=== PATIENT | male | born 1955 | race Caucasian/White ===

== ENCOUNTER → 2016-07-05 | Outpatient (REF) | payer BC ==
[2016-07-05 13:15] LABS: ALBUMIN 3.9 GM/DL (3.2-5.2); ALBUMIN/GLOBULIN RATIO 1.18 (1.00-1.93); ALKALINE PHOSPHATASE 100 U/L (45-117); ALT/SGPT 90 U/L (12-78); ANION GAP 6 MEQ/L (8-16); AST/SGOT 37 U/L (15-37); BILIRUBIN,TOTAL 0.4 MG/DL (0.2-1.0); BLOOD UREA NITROGEN 20 MG/DL (7-18); CALCIUM LEVEL 8.9 MG/DL (8.5-10.1); CARBON DIOXIDE LEVEL 30 MEQ/L (21-32); CHLORIDE LEVEL 102 MEQ/L (98-107); CREATININE FOR GFR 0.97 MG/DL (0.70-1.30); GLOMERULAR FILTRATION RATE > 60.0 (>56); GLUCOSE, FASTING 193 MG/DL (70-105); POTASSIUM SERUM 4.5 MEQ/L (3.5-5.1); SODIUM LEVEL 138 MEQ/L (136-145); TOTAL PROTEIN 7.2 GM/DL (6.4-8.2)
== END ==
LOC: M SFHCPLAZ 08:04
PROVIDERS: ATTEND Nurse Practitioner Family
DX: E11.9 Type 2 diabetes mellitus without complications (principal)

== ENCOUNTER → 2016-10-30 | Outpatient (REF) | payer BC ==
[2016-10-30 11:45] LABS: ALBUMIN 3.7 GM/DL (3.2-5.2); ALBUMIN/GLOBULIN RATIO 1.23 (1.00-1.93); ALKALINE PHOSPHATASE 61 U/L (45-117); ALT/SGPT 48 U/L (12-78); ANION GAP 10 MEQ/L (8-16); AST/SGOT 27 U/L (15-37); BILIRUBIN,TOTAL 0.3 MG/DL (0.2-1.0); BLOOD UREA NITROGEN 17 MG/DL (7-18); CALCIUM LEVEL 8.1 MG/DL (8.8-10.2); CARBON DIOXIDE LEVEL 26 MEQ/L (21-32); CHLORIDE LEVEL 104 MEQ/L (98-107); CHOLESTEROL LEVEL 117 MG/DL (<200); GLOMERULAR FILTRATION RATE > 60.0 (>49); GLUCOSE, FASTING 107 MG/DL (80-110); POTASSIUM SERUM 4.3 MEQ/L (3.5-5.1); SODIUM LEVEL 140 MEQ/L (136-145); TOTAL PROTEIN 6.7 GM/DL (6.4-8.2); TRIGLYCERIDES LEVEL 214 MG/DL (<150)
== END ==
LOC: M SFHCPLAZ 07:55
PROVIDERS: ATTEND Nurse Practitioner Family
DX: E11.9 Type 2 diabetes mellitus without complications (principal); E78.2 Mixed hyperlipidemia; Z12.5 Encounter for screening for malignant neoplasm of prostate
CPT/HCPCS: 36415; 80053; 80061; 83036; G0103

== ENCOUNTER → 2017-02-21 | Outpatient (REF) | payer BC ==
[2017-02-21 13:35] LABS: ALBUMIN 3.8 GM/DL (3.2-5.2); ALBUMIN/GLOBULIN RATIO 1.23 (1.00-1.93); ALKALINE PHOSPHATASE 72 U/L (45-117); ALT/SGPT 48 U/L (12-78); ANION GAP 6 MEQ/L (8-16); AST/SGOT 19 U/L (7-37); BILIRUBIN,TOTAL 0.2 MG/DL (0.2-1.0); BLOOD UREA NITROGEN 23 MG/DL (7-18); CALCIUM LEVEL 9.1 MG/DL (8.8-10.2); CARBON DIOXIDE LEVEL 28 MEQ/L (21-32); CHLORIDE LEVEL 108 MEQ/L (98-107); CREATININE FOR GFR 0.89 MG/DL (0.70-1.30); GLOMERULAR FILTRATION RATE > 60.0 (>49); GLUCOSE, FASTING 95 MG/DL (80-110); POTASSIUM SERUM 4.9 MEQ/L (3.5-5.1); SODIUM LEVEL 142 MEQ/L (136-145); TOTAL PROTEIN 6.9 GM/DL (6.4-8.2)
== END ==
LOC: M SFHCPLAZ 08:23
PROVIDERS: ATTEND Nurse Practitioner Family
DX: E11.9 Type 2 diabetes mellitus without complications (principal)

== ENCOUNTER → 2017-07-26 | Outpatient (REF) | payer BC ==
[2017-07-26 12:22] LABS: ALBUMIN 4.1 GM/DL (3.2-5.2); ALBUMIN/GLOBULIN RATIO 1.24 (1.00-1.93); ALKALINE PHOSPHATASE 75 U/L (45-117); ALT/SGPT 49 U/L (12-78); ANION GAP 7 MEQ/L (8-16); AST/SGOT 22 U/L (7-37); BILIRUBIN,TOTAL 0.4 MG/DL (0.2-1.0); BLOOD UREA NITROGEN 22 MG/DL (7-18); CALCIUM LEVEL 8.8 MG/DL (8.8-10.2); CARBON DIOXIDE LEVEL 27 MEQ/L (21-32); CHLORIDE LEVEL 107 MEQ/L (98-107); CREATININE FOR GFR 0.91 MG/DL (0.70-1.30); GLOMERULAR FILTRATION RATE > 60.0 (>49); GLUCOSE, FASTING 125 MG/DL (70-100); POTASSIUM SERUM 4.4 MEQ/L (3.5-5.1); SODIUM LEVEL 141 MEQ/L (136-145); TOTAL PROTEIN 7.4 GM/DL (6.4-8.2)
[2017-07-26 12:39] LABS: ESTIMATED AVERAGE GLUCOSE 134 MG/DL (60-110); HEMOGLOBIN A1c 6.3 %
[2017-07-26 12:54] LABS: CREATININE, URINE 81.5 MG/DL; MALB URINE SIEMENS 8.4 MG/L; MAU/CREAT RATIO 10.3 MCG/MG (0.0-30.0)
== END ==
LOC: M SFHCPLAZ 07:48
DX: E11.9 Type 2 diabetes mellitus without complications (principal); I10 Essential (primary) hypertension
CPT/HCPCS: 80053

== ENCOUNTER → 2017-11-29 | Outpatient (REF) | payer BC ==
[2017-11-29 11:01] LABS: ALBUMIN 3.8 GM/DL (3.2-5.2); ALBUMIN/GLOBULIN RATIO 1.15 (1.00-1.93); ALKALINE PHOSPHATASE 80 U/L (45-117); ALT/SGPT 79 U/L (12-78); ANION GAP 9 MEQ/L (8-16); AST/SGOT 33 U/L (7-37); BILIRUBIN,TOTAL 0.4 MG/DL (0.2-1.0); BLOOD UREA NITROGEN 19 MG/DL (7-18); CALCIUM LEVEL 8.7 MG/DL (8.8-10.2); CARBON DIOXIDE LEVEL 26 MEQ/L (21-32); CHLORIDE LEVEL 105 MEQ/L (98-107); CHOLESTEROL LEVEL 113 MG/DL (<200); CHOLESTEROL RISK RATIO 3.138 (<5); GLOMERULAR FILTRATION RATE > 60.0 (>49); GLUCOSE, FASTING 179 MG/DL (70-100); HDL CHOLESTEROL 36 MG/DL (>40); LDL CHOLESTEROL 46.2 MG/DL (<100); NON-HDL-C 77 MG/DL; POTASSIUM SERUM 4.5 MEQ/L (3.5-5.1); SODIUM LEVEL 140 MEQ/L (136-145); TOTAL PROTEIN 7.1 GM/DL (6.4-8.2); TRIGLYCERIDES LEVEL 154 MG/DL (<150)
[2017-11-29 11:07] LABS: PSA SCREENING 0.36 NG/ML (< 4.0)
[2017-11-29 11:08] LABS: ESTIMATED AVERAGE GLUCOSE 137 MG/DL (60-110); HEMOGLOBIN A1c 6.4 %
[2017-11-29 11:15] LABS: VITAMIN B12 LEVEL 382 PG/ML (247-911)
== END ==
LOC: M SFHCPLAZ 08:05
DX: I10 Essential (primary) hypertension (principal); E11.9 Type 2 diabetes mellitus without complications; E78.5 Hyperlipidemia, unspecified; Z12.5 Encounter for screening for malignant neoplasm of prostate
CPT/HCPCS: 82607

== ENCOUNTER → 2018-03-03 | Outpatient (REF) | payer BC ==
[2018-03-03 12:08] LABS: ALBUMIN 4.1 GM/DL (3.2-5.2); ALBUMIN/GLOBULIN RATIO 1.46 (1.00-1.93); ALKALINE PHOSPHATASE 74 U/L (45-117); ALT/SGPT 67 U/L (12-78); ANION GAP 7 MEQ/L (8-16); AST/SGOT 29 U/L (7-37); BILIRUBIN,TOTAL 0.4 MG/DL (0.2-1.0); BLOOD UREA NITROGEN 19 MG/DL (7-18); CALCIUM LEVEL 8.8 MG/DL (8.8-10.2); CARBON DIOXIDE LEVEL 27 MEQ/L (21-32); CHLORIDE LEVEL 104 MEQ/L (98-107); CREATININE FOR GFR 1.03 MG/DL (0.70-1.30); ESTIMATED AVERAGE GLUCOSE 146 MG/DL (60-110); GLOMERULAR FILTRATION RATE > 60.0 (>49); GLUCOSE, FASTING 152 MG/DL (70-100); HEMOGLOBIN A1c 6.7 %; POTASSIUM SERUM 4.8 MEQ/L (3.5-5.1); SODIUM LEVEL 138 MEQ/L (136-145); TOTAL PROTEIN 6.9 GM/DL (6.4-8.2)
[2018-03-03 12:10] LABS: TOTAL 25(OH) VITAMIN D 10.1 NG/ML (30.0-100.0)
== END ==
LOC: M SFHCPLAZ 08:11
DX: I10 Essential (primary) hypertension (principal); E78.5 Hyperlipidemia, unspecified; E11.9 Type 2 diabetes mellitus without complications; E55.9 Vitamin D deficiency, unspecified
CPT/HCPCS: 80053

== ENCOUNTER → 2018-06-06 | Outpatient (REF) | payer BC ==
[2018-06-06 11:01] LABS: ALBUMIN 3.9 GM/DL (3.2-5.2); ALT/SGPT 66 U/L (12-78); BILIRUBIN,TOTAL 0.5 MG/DL (0.2-1.0); BLOOD UREA NITROGEN 19 MG/DL (7-18); CALCIUM LEVEL 8.7 MG/DL (8.8-10.2); CARBON DIOXIDE LEVEL 31 MEQ/L (21-32); CHLORIDE LEVEL 105 MEQ/L (98-107); CREATININE FOR GFR 1.03 MG/DL (0.70-1.30); GLOMERULAR FILTRATION RATE > 60.0 (>49); GLUCOSE, FASTING 140 MG/DL (70-100); HEMOGLOBIN A1c 6.9 %; MALB URINE SIEMENS 13.1 MG/L; MAU/CREAT RATIO 12.9 MCG/MG (0.0-30.0); POTASSIUM SERUM 4.7 MEQ/L (3.5-5.1); SODIUM LEVEL 141 MEQ/L (136-145)
== END ==
LOC: M SFHCPLAZ 08:04
PROVIDERS: ATTEND Nurse Practitioner Family
DX: I10 Essential (primary) hypertension (principal); E11.9 Type 2 diabetes mellitus without complications; E55.9 Vitamin D deficiency, unspecified; Z12.5 Encounter for screening for malignant neoplasm of prostate
CPT/HCPCS: 36415; 80053; 82043; 82306; 83036; G0103

== ENCOUNTER 2018-08-18 19:37 | Observation (INO) | payer BC ==
[~2018-08-18] VITALS: Ht 165.1 cm; Wt 103.9 kg
[2018-08-18 20:33] LABS: BASO % 0.4 % (0.0-1.0); EOS # 0.1 10^3/uL (0.0-0.50); EOS % 0.7 % (0.0-3.0); HEMATOCRIT 42.7 % (42.0-52.0); HEMOGLOBIN 14.6 g/dl (13.5-17.5); LYMPH # 1.7 10^3/uL (1.5-4.5); LYMPH % 18.6 % (24.0-44.0); MEAN CORPUSCULAR HEMOGLOBIN 33.5 pg (27.0-33.0); MEAN CORPUSCULAR HGB CONC 34.2 g/dl (32.0-36.5); MEAN CORPUSCULAR VOLUME 97.9 fl (80.0-96.0); MONO # 0.9 10^3/uL (0.0-0.8); NEUTROPHILS # 6.4 10^3/uL (1.8-7.7); PLATELET COUNT, AUTOMATED 175 10^3/uL (150-450); RED BLOOD COUNT 4.36 10^6/uL (4.30-6.10); WHITE BLOOD COUNT 9.1 10^3/uL (4.0-10.0)
[2018-08-18 21:07] LABS: ALBUMIN 3.7 GM/DL (3.2-5.2); ALT/SGPT 60 U/L (12-78); BILIRUBIN,TOTAL 0.4 MG/DL (0.2-1.0); BLOOD UREA NITROGEN 20 MG/DL (7-18); CALCIUM LEVEL 8.5 MG/DL (8.8-10.2); CARBON DIOXIDE LEVEL 20 MEQ/L (21-32); CHLORIDE LEVEL 110 MEQ/L (98-107); CPK CREATINE PHOSPHOKINASE 593 U/L (39-308); CREATININE FOR GFR 1.13 MG/DL (0.70-1.30); FREE T4 0.88 NG/DL (0.76-1.46); GLOMERULAR FILTRATION RATE > 60.0 (>49); GLUCOSE, FASTING 151 MG/DL (70-100); MAGNESIUM LEVEL 1.5 MG/DL (1.8-2.4); MB/CK RELATIVE INDEX 1.06 (< OR =4); POTASSIUM SERUM 4.3 MEQ/L (3.5-5.1); SODIUM LEVEL 140 MEQ/L (136-145); TOTAL PROTEIN 6.5 GM/DL (6.4-8.2); TROPONIN I 0.12 NG/ML (< 0.10)
--- NOTE | 2018-08-18 21:15 | ECGEPIP ---
[facility] - ED Test Date: 2018-08-18 Pat Name: SYLVIA SOMMER Department: Room: - Gender: Male Billposter: ct : [id number] Requested By: COSME Suh Order Number: [id number] Reading MD: Theresa Quinonez Measurements Intervals [place] Rate: 69 P: 35 UT: 162 QRS: QRSD: 97 T: 5 QT: 363 QTc: 391 Interpretive Statements SINUS RHYTHM NO PRIOR FOR COMPARISON Electronically Signed on 08-18-2018 21:15:09 EDT by Theresa Quinonez
[2018-08-18] MEDS ORDERED: MAGNESIUM OXIDE 400 MG TAB (MAG-OX) PO ONE (21:30)
[2018-08-18] MEDS ORDERED: MAG SULF 1GM/100ML (MAG RUN) 1 GM in APPROPRIATE DILUENT 1 EA IV ONE (21:30)
[2018-08-18 22:44] LABS: ETHYL ALCOHOL (ETHANOL) < 0.003 % (0.000-0.010)
[2018-08-18 23:14] LABS: MB/CK RELATIVE INDEX 1.06 (< OR =4); TROPONIN I 0.15 NG/ML (< 0.10)
[2018-08-19] MEDS ORDERED: MOM 30ML SUSPENSION UDC PO PRN (01:00)
[2018-08-19] MEDS ORDERED: BISO5TAB2 PO (01:04)
[2018-08-19] MEDS ORDERED: ROSU20TA4 PO (01:04)
[2018-08-19] MEDS ORDERED: ASPI81TA27 PO (01:04)
[2018-08-19] MEDS ORDERED: LISI-538 PO (01:04)
[2018-08-19] MEDS ORDERED: ESCI20TA PO (01:04)
[2018-08-19] MEDS ORDERED: FISH500C PO (01:04)
[2018-08-19] MEDS ORDERED: METF-877 PO (01:04)
[2018-08-19] MEDS ORDERED: GLIP5TAB8 PO (01:04)
[2018-08-19] MEDS ORDERED: GLUCOSE 4 GM CHEW TABLET PO PRN (01:30)
[2018-08-19] MEDS ORDERED: GLUCAGON FOR INJ 1 MG VIAL (J1610) SC PRN (01:30)
[2018-08-19] MEDS ORDERED: DEXTROSE 50% 50 ML SYRINGE IV PRN (01:30)
--- NOTE | 2018-08-19 01:33 | HPEPDOC ---
General Date of Admission 08/19/18 Date of Service: August 19, 2018 Chief Complaint The patient is a 63-year-old male admitted with a reason for visit of Cardiac Problems. Source: Patient, Family, RN/MD, EMS notes reviewed, Old records Exam Limitations: No limitations Severity: Mild Associated Symptoms: Chest Pain, Syncope History of Present Illness 63 year old Male with PMH of HYPERTENSION , HYPERLIPIDEMIA, DIABETES MELLITUS , OBSTRUCTIVE SLEEP APNEA, FATTY LIVER , ANXIETY , OBESITY, VITAMIN D DEFICI ENCY presented to ED for palpitations, chest pain and syncopal episode at home. 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 The chest heaviness was located retrosternally and slightly to the left. It was heavy pressure like in nature, did not have any radiation. It was associated with palpitations but no nausea or diaphoresis or cough or wheezing or SOB. He went and relaxed in his recliner. THe symptoms went away in about 90 mins. He had a similar episode about 2 weeks ago when he was down in [place] but did not tell any one anything. After initially his symptoms got better he went to take a shower. in shower his symptoms again started and he passed out. Once he regained consciousness he called to his and she then called the EMS. He continued to have palpitations and chest pain. EMS found him to be in SVT. he was given 1 dose of Adenosine and it broke to Sinus rhythm. Patient was brought to the ED. In the ED he was in sinus rhythm. His lab work showed mild elevation of troponin. Repeat one after 2 hour had gone a little bit more. 0.12 to 0.15. Also his magnesium was 1.5. Cardiology was contacted by ED and Dr Hebert recommended admitting for observation of cardiac rhythm and trending of troponins. Home Medications Scheduled Aspirin (Aspirin EC) 81 Mg Tablet., 81 MG PO DAILY, (Reported) Bisoprolol/Hydrochlorothiazide (Bisoprolol-Hctz 5-6.25 mg Tab) 1 Each Tablet, 1 TAB PO DAILY, (Reported) Escitalopram Oxalate (Escitalopram Oxalate) 20 Mg Tablet, 20 MG PO DAILY, (Reported) Glipizide (Glipizide) 5 Mg Tablet, 5 MG PO BID, (Reported) Lisinopril (Lisinopril) 20 Mg Tablet, 20 MG PO DAILY, (Reported) Metformin HCl (Metformin HCl) 1,000 Mg Tablet, 1,000 MG PO BID, (Reported) [place]-3/Dha/Epa/Fish Oil (Fish Oil 500 mg Softgel) 1 Each Capsule, 500 MG PO BID, (Reported) Rosuvastatin Calcium (Rosuvastatin Calcium) 20 Mg Tablet, 20 MG PO 3XW, (Reported) SATURDAY, SATURDAY AND SATURDAY Allergies Coded Allergies: No Known Allergies (Unverified , 08/18/18) Past Medical History Medical History HYPERTENSION , HYPERLIPIDEMIA, DIABETES MELLITUS , OBSTRUCTIVE SLEEP APNEA, FATTY LIVER , ANXIETY , OBESITY, VITAMIN D DEFICIENCY Surgical History Left shoulder cyst removal Family History Significant Family History: Cancer (breat mother, ), Heart disease (father, ), Hypertension Social History * Smoker: Denies Alcohol: occationally (on Weekends about 8 Beers and may be once during the week twice 2 beers.) Drugs: denies A-FIB/CHADSVASC A-FIB History Current/History of A-Fib/PAF?: No Review of Systems Constitutional: Denies: Chills, Fever, Night Sweats Eyes: Denies: Pain, Vision change ENT: Denies: Head Aches, Ear Pain, Dysphagia Skin: Denies: Rash, Lesions, Breakdown Pulmonary: Denies: Dyspnea, Cough Cardiovascular: Reports: Chest Pain, Palpitations, Lt Headedness, Other Symptoms (passed out) Gastrointestinal: Denies: Nausea, Vomiting, Abdominal Pain, Diarrhea Genitourinary: Denies: Dysuria, Frequency, Incontinence, Retention Hematologic: Denies: Bruising, Bleeding Excessively Musculoskeletal: Denies: Neck Pain, Back Pain, Joint Pain, Muscle Pain, Spasms Neurological: Reports: Other Symptoms (syncope); Denies: Weakness, Numbness, Change in speech, Confusion Psych: Reports: Mood Normal, Anxiety; Denies: Depression, Memory Issues Physical Examination General Exam: Positive: Alert, Cooperative, No Acute Distress Eye Exam: Positive: PERRLA, Conjunctiva & lids normal, EOMI; Negative: Sclera icteric ENT Exam: Positive: Atraumatic, Mucous membr. moist/pink, Pharynx Normal Neck Exam: Positive: Supple; Negative: JVD, thyromegaly Chest Exam: Positive: Clear to auscultation, Normal air movement Heart Exam: Positive: Rate Normal, Regular Rhythm, Normal S1, Normal S2; Negative: Murmurs, Rubs Telemetry: Positive: No significant arrhythmia Abdomen Exam: Positive: Normal bowel sounds, Soft; Negative: Tenderness, Hepatospenomegaly Skin Exam: Positive: Nl turgor and temperature; Negative: Breakdown, Lesion Neuro Exam: Positive: Normal Gait, Normal Speech, Cranial Nerves 3-12 NL, R eflexes 2+ Vital Signs Vital Signs Date Time Temp Pulse Resp B/P (MAP) Pulse Ox O2 Delivery O2 Flow Rate FiO2 08/19/18 00:45 54 18 115/62 (79) 94 Room Air 08/18/18 19:50 96.9 Laboratory Data Labs 24H Laboratory Tests 2 08/18/18 20:24: Immature Granulocyte % (Auto) 0.3, White Blood Count 9.1, Red Blood Count 4.36, Hemoglobin 14.6, Hematocrit 42.7, Mean Corpuscular Volume 97.9H, Mean Corpuscular Hemoglobin 33.5H, Mean Corpuscular Hemoglobin Concent 34.2, Red Cell Distribution Width 12.8, Platelet Count 175, Neutrophils (%) (Auto) 70.0H, Lymphocytes (%) (Auto) 18.6L, Monocytes (%) (Auto) 10.0H, Eosinophils (%) (Auto) 0.7, Basophils (%) (Auto) 0.4, Neutrophils # (Auto) 6.4, Lymphocytes # (Auto) 1.7, Monocytes # (Auto) 0.9H, Eosinophils # (Auto) 0.1, Basophils # (Auto) 0.0, Nucleated Red Blood Cells % (auto) 0.0, Anion Gap 10, Glomerular Filtration Rate > 60.0, Blood Urea Nitrogen 20H, Creatinine 1.13, Sodium Level 140, Potassium Level 4.3, Chloride Level 110H, Carbon Dioxide Level 20L, Calcium Level 8.5L, Aspartate Amino Transf (AST/SGOT) 41H, Alanine Aminotransferase (ALT/SGPT) 60, Total Creatine Kinase 593H, Alkaline Phosphatase 64, Total Bilirubin 0.4, Total Protein 6.5, Albumin 3.7, Magnesium Level 1.5L, Creatine Kinase MB 6.0H, Creatine Kinase MB Relative Index 1.06, Troponin I 0.12H, Albumin/Globulin Ratio 1.32, Thyroid Stimulating Hormone (TSH) 1.660, Free Thyroxine 0.88, Ethyl Alcohol Level < 0.003 08/18/18 22:32: Total Creatine Kinase 556H, Creatine Kinase MB 6.0H, Creatine Kinase MB Relative Index 1.06, Troponin I 0.15#H CBC/BMP Laboratory Tests 08/18/18 20:24 Red Blood Count 4.36, Mean Corpuscular Volume 97.9 H, Mean Corpuscular Hemoglobin 33.5 H, Mean Corpuscular Hemoglobin Concent 34.2, Red Cell Distri bution Width 12.8, Neutrophils (%) (Auto) 70.0 H, Lymphocytes (%) (Auto) 18.6 L, Monocytes (%) (Auto) 10.0 H, Eosinophils (%) (Auto) 0.7, Basophils (%) (Auto) 0.4, Neutrophils # (Auto) 6.4, Lymphocytes # (Auto) 1.7, Monocytes # (Auto) 0.9 H, Eosinophils # (Auto) 0.1, Basophils # (Auto) 0.0, Calcium Level 8.5 L, Aspartate Amino Transf (AST/SGOT) 41 H, Alanine Aminotransferase (ALT/SGPT) 60, Total Creatine Kinase 593 H, Alkaline Phosphatase 64, Total Bilirubin 0.4, Total Protein 6.5, Albumin 3.7 Assessment/Plan 63 year old Male with PMH of HYPERTENSION , HYPERLIPIDEMIA, DIABETES MELLITUS , OBSTRUCTIVE SLEEP APNEA, FATTY LIVER , ANXIETY , OBESITY, VITAMIN D DEFICI ENCY presented to ED for palpitations, chest pain and syncopal episode at home. 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 The chest heaviness was located retrosternally and slightly to the left. It was heavy pressure like in nature, did not have any radiation. It was associated with palpitations but no nausea or diaphoresis or cough or wheezing or SOB. He went and relaxed in his recliner. THe symptoms went away in about 90 mins. He had a similar episode about 2 weeks ago when he was down in [place] but did not tell any one anything. After initially his symptoms got better he went to take a shower. in shower his symptoms again started and he passed out. Once he regained consciousness he called to his and she then called the EMS. He continued to have palpitations and chest pain. EMS found him to be in SVT. he was given 1 dose of Adenosine and it broke to Sinus rhythm. Patient was brought to the ED. In the ED he was in sinus rhythm. His lab work showed mild elevation of troponin. Repeat one after 2 hour had gone a little bit more. 0.12 to 0.15. Also his magnesium was 1.5. Cardiology was contacted by ED and Dr Hebert recommended admitting for observation of cardiac rhythm and trending of troponins. SVT now resolved after adenosine by EMS will observe on telemetry Pateint does drink quite significant amount of alcohol over the week ends and he did drink yesterday and today so this may be a precipitating factor I have couselled the pateint regarding cutting down the amount of drinking. Elevated troponin this probably secondary to tachycardia will trend overnight Echo. Hypomagnesemia replaced GALI on CPAP may use own CPAP Morbid Obesity and Fatty liver counselled and diet and trying to loose some weight. Diabetes glipizide continue, hold metformin lispro as per sliding scale Hypertension bisoprolol, lisopril hold HCTZ Hyperlipidemia statin. Plan / VTE VTE Prophylaxis Ordered?: Yes CAROLE WILLIAM MD August 19, 2018 01:31
[2018-08-19 02:45] VITALS: BP 120/62
[2018-08-19 05:22] LABS: BASO # 0.1 10^3/uL (0.0-0.2); BASO % 0.7 % (0.0-1.0); EOS # 0.2 10^3/uL (0.0-0.50); EOS % 2.8 % (0.0-3.0); HEMATOCRIT 41.5 % (42.0-52.0); HEMOGLOBIN 13.9 g/dl (13.5-17.5); LYMPH # 2.3 10^3/uL (1.5-4.5); LYMPH % 33.3 % (24.0-44.0); MEAN CORPUSCULAR HEMOGLOBIN 32.6 pg (27.0-33.0); MEAN CORPUSCULAR HGB CONC 33.5 g/dl (32.0-36.5); MEAN CORPUSCULAR VOLUME 97.2 fl (80.0-96.0); MONO # 0.9 10^3/uL (0.0-0.8); NEUTROPHILS # 3.4 10^3/uL (1.8-7.7); NEUTROPHILS % 49.9 % (36.0-66.0); PLATELET COUNT, AUTOMATED 167 10^3/uL (150-450); RED BLOOD COUNT 4.27 10^6/uL (4.30-6.10); WHITE BLOOD COUNT 6.8 10^3/uL (4.0-10.0)
[2018-08-19 05:40] LABS: BLOOD UREA NITROGEN 18 MG/DL (7-18); CALCIUM LEVEL 8.4 MG/DL (8.8-10.2); CARBON DIOXIDE LEVEL 23 MEQ/L (21-32); CHLORIDE LEVEL 108 MEQ/L (98-107); CREATININE FOR GFR 0.96 MG/DL (0.70-1.30); GLOMERULAR FILTRATION RATE > 60.0 (>49); GLUCOSE, FASTING 118 MG/DL (70-100); MAGNESIUM LEVEL 2.2 MG/DL (1.8-2.4); POTASSIUM SERUM 4.3 MEQ/L (3.5-5.1); SODIUM LEVEL 140 MEQ/L (136-145)
[2018-08-19 05:54] LABS: MB/CK RELATIVE INDEX 1.13 (< OR =4); TROPONIN I 0.21 NG/ML (< 0.10)
[2018-08-19 08:00] VITALS: BP 105/56
--- NOTE | 2018-08-19 08:09 | REP ---
Portable chest x-ray: Single view. History: Chest pain. No comparison study. Findings: Today's views exposed at a somewhat lordotic angle. Lungs are well inflated and clear. Heart size is normal. EKG electrodes are seen. Pulmonary vasculature is not increased. Pleural angles are sharp. Impression: No active disease. Electronically Signed by Maximo Velasquez MD 08/19/2018 08:00 A
[2018-08-19] MEDS: LISINOPRIL 20 MG TAB PO SCH (08:46)
[2018-08-19] MEDS: MAGNESIUM OXIDE 400 MG TAB (MAG-OX) PO SCH (08:46)
[2018-08-19] MEDS: BISOPROLOL FUMARATE 5 MG TAB PO SCH (08:46)
[2018-08-19] MEDS: ASPIRIN 81 MG ENTERIC TAB PO SCH (08:47)
[2018-08-19] MEDS: glipiZIDE (GLUCOTROL) 5 MG TAB PO SCH ×2 (08:47→17:36)
[2018-08-19] MEDS: ENOXAPARIN 40 MG/0.4 ML SYRINGE (J1650) SC SCH (08:47)
[2018-08-19] MEDS: ESCITALOPRAM OXALATE 10 MG TAB (LEXAPRO) PO SCH (08:47)
[2018-08-19] MEDS: HumaLOG INSULIN (NovoLOG) PER UNIT SC SCH ×3 (08:48→17:36)
[2018-08-19] MEDS: DOCUSATE SODIUM 100 MG CAP PO SCH ×2 (09:00→20:33)
--- NOTE | 2018-08-19 09:45 | IPNPDOC ---
Subjective Date Seen The patient was seen on 08/19/18. Subjective Chief Complaint/HPI syncope Events since last encounter Admitted for syncopal episode. Telemetry unremarkable. tropnonin with a slight bump to 0.20. denies further episodes of dizziness, lightheadedness, CP FARIAS, diaphoresis, or fatigue. Echo pending for today. Pulmonary: Denies: Dyspnea, Cough Cardiovascular: Denies: Chest Pain, Palpitations, Orthopnea, Paroxysmal Noc. Dyspnea, Lt Headedness Gastrointestinal: Denies: Nausea, Vomiting, Abdominal Pain, Diarrhea, Constipation Psych: Reports: Mood Normal; Denies: Depression, Memory Issues Objective Physical Examination General Exam: Positive: Alert, Cooperative, No Acute Distress Eye Exam: Positive: PERRLA, Conjunctiva & lids normal, EOMI; Negative: Sclera icteric ENT Exam: Positive: Atraumatic, Mucous membr. moist/pink, Pharynx Normal Neck Exam: Positive: Supple; Negative: JVD, thyromegaly Chest Exam: Positive: Clear to auscultation, Normal air movement Heart Exam: Positive: Rate Normal, Regular Rhythm, Normal S1, Normal S2; Negative: Murmurs, Rubs Telemetry: Positive: No significant arrhythmia Abdomen Exam: Positive: Normal bowel sounds, Soft; Negative: Tenderness, Hepatospenomegaly Skin Exam: Positive: Nl turgor and temperature; Negative: Breakdown, Lesion Neuro Exam: Positive: Normal Gait, Normal Speech, Cranial Nerves 3-12 NL, Ref lexes 2+ Assessment /Plan Problems (1) Elevated troponin Status: Acute Problem Specific Plan: Consult Specialist Problem Text: cardio following. echo pending for today. Most recent level 0.20 (2) SVT (supraventricular tachycardia) Status: Acute Problem Specific Plan: Consult Specialist Problem Text: HR controlled. Cardiology consulted (3) Diabetes Status: Chronic Problem Text: Metformin on HOLD. Continue with RISS (4) HTN (hypertension) Status: Chronic (5) SYD (generalized anxiety disorder) Status: Chronic Problem Text: continue Lexapro Plan/VTE VTE Prophylaxis Ordered?: Yes VS, I&O, 24H, Fishbone Vital Signs/I&O Vital Signs Date Time Temp Pulse Resp B/P (MAP) Pulse Ox O2 Delivery O2 Flow Rate FiO2 08/19/18 08:46 54 105/56 08/19/18 08:00 98.5 18 95 08/19/18 02:15 Room Air I&O- Last 24 Hours up to 6 AM 08/19/18 06:00 Intake Total 100 ml Output Total 600 ml Balance -500 ml Laboratory Data 24H LABS Laboratory Tests 2 08/18/18 20:24: Immature Granulocyte % (Auto) 0.3, White Blood Count 9.1, Red Blood Count 4.36, Hemoglobin 14.6, Hematocrit 42.7, Mean Corpuscular Volume 97.9H, Mean Corpuscular Hemoglobin 33.5H, Mean Corpuscular Hemoglobin Concent 34.2, Red Cell Distribution Width 12.8, Platelet Count 175, Neutrophils (%) (Auto) 70.0H, Lymphocytes (%) (Auto) 18.6L, Monocytes (%) (Auto) 10.0H, Eosinophils (%) (Auto) 0.7, Basophils (%) (Auto) 0.4, Neutrophils # (Auto) 6.4, Lymphocytes # (Auto) 1.7, Monocytes # (Auto) 0.9H, Eosinophils # (Auto) 0.1, Basophils # (Auto) 0.0, Nucleated Red Blood Cells % (auto) 0.0, Anion Gap 10, Glomerular Filtration Rate > 60.0, Blood Urea Nitrogen 20H, Creatinine 1.13, Sodium Level 140, Potassium Level 4.3, Chloride Level 110H, Carbon Dioxide Level 20L, Calcium Level 8.5L, Aspartate Amino Transf (AST/SGOT) 41H, Alanine Aminotransferase (ALT/SGPT) 60, Total Creatine Kinase 593H, Alkaline Phosphatase 64, Total Bilirubin 0.4, Total Protein 6.5, Albumin 3.7, Magnesium Level 1.5L, Creatine Kinase MB 6.0H, Creatine Kinase MB Relative Index 1.06, Troponin I 0.12H, Albumin/Globulin Ratio 1.32, Thyroid Stimulating Hormone (TSH) 1.660, Free Thyroxine 0.88, Ethyl Alcohol Level < 0.003 08/18/18 22:32: Total Creatine Kinase 556H, Creatine Kinase MB 6.0H, Creatine Kinase MB Relative Index 1.06, Troponin I 0.15#H 08/19/18 05:09: Immature Granulocyte % (Auto) 0.3, White Blood Count 6.8, Red Blood Count 4.27L, Hemoglobin 13.9, Hematocrit 41.5L, Mean Corpuscular Volume 97.2H, Mean Corpuscular Hemoglobin 32.6, Mean Corpuscular Hemoglobin Concent 33.5, Red Cell Distribution Width 13.0, Platelet Count 167, Neutrophils (%) (Auto) 49.9, Lymphocytes (%) (Auto) 33.3, Monocytes (%) (Auto) 13.0H, Eosinophils (%) (Auto) 2.8, Basophils (%) (Auto) 0.7, Neutrophils # (Auto) 3.4, Lymphocytes # (Auto) 2.3, Monocytes # (Auto) 0.9H, Eosinophils # (Auto) 0.2, Basophils # (Auto) 0.1, Nucleated Red Blood Cells % (auto) 0.0, Anion Gap 9, Glomerular Filtration Rate > 60.0, Blood Urea Nitrogen 18, Creatinine 0.96, Sodium Level 140, Potassium Level 4.3, Chloride Level 108H, Carbon Dioxide Level 23, Calcium Level 8.4L, Total Creatine Kinase 487H, Magnesium Level 2.2, Creatine Kinase MB 6.0H, Creatine Kinase MB Relative Index 1.13, Troponin I 0.21#H CBC/BMP Laboratory Tests 08/18/18 20:24 Red Blood Count 4.36, Mean Corpuscular Volume 97.9 H, Mean Corpuscular Hemoglobin 33.5 H, Mean Corpuscular Hemoglobin Concent 34.2, Red Cell Distribution Width 12.8, Neutrophils (%) (Auto) 70.0 H, Lymphocytes (%) (Auto) 18.6 L, Monocytes (%) (Auto) 10.0 H, Eosinophils (%) (Auto) 0.7, Basophils (%) (Auto) 0.4, Neutrophils # (Auto) 6.4, Lymphocytes # (Auto) 1.7, Monocytes # (Auto) 0.9 H, Eosinophils # (Auto) 0.1, Basophils # (Auto) 0.0, Calcium Level 8.5 L, Aspartate Amino Transf (AST/SGOT) 41 H, Alanine Aminotransferase (ALT/SGPT) 60, Total Creatine Kinase 593 H, Alkaline Phosphatase 64, Total Bilirubin 0.4, Total Protein 6.5, Albumin 3.7 08/19/18 05:09 Red Blood Count 4.27 L, Mean Corpuscular Volume 97.2 H, Mean Corpuscular Hemoglobin 32.6, Mean Corpuscular Hemoglobin Concent 33.5, Red Cell Distribution Width 13.0, Neutrophils (%) (Auto) 49.9, Lymphocytes (%) (Auto) 33.3, Monocytes (%) (Auto) 13.0 H, Eosinophils (%) (Auto) 2.8, Basophils (%) (Auto) 0.7, Neutrophils # (Auto) 3.4, Lymphocytes # (Auto) 2.3, Monocytes # (Auto) 0.9 H, Eosinophils # (Auto) 0.2, Basophils # (Auto) 0.1, Calcium Level 8.4 L Attending Note Attending Note patient seen and examined. rhythm controlled. no symptoms. likely a candidate for catheter ablation therapy for re-entrant pathway triggering SVT.. Gloria Espinal August 19, 2018 09:45 Joseph Stoddard MD August 19, 2018 16:49
--- NOTE | 2018-08-19 10:01 | CR ---
DATE OF CONSULTATION: 08/19/2018 REFERRING PHYSICIAN: Dr. Pabon INDICATION: Supraventricular tachycardia, elevated troponin. HISTORY OF PRESENT ILLNESS: Mr. Roblero is known to me. I saw him last in 2014 due to multiple risk factors for coronary artery disease, but at that point he did not have any symptoms and we did not pursue any further evaluation. He presented to [facility] ER yesterday after he suffered a syncopal event at home. He told me that he was watering [place] when he suddenly started experiencing palpitations. 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 After he sat down he felt better. He believes that the total duration of palpitations at that point was at least an hour and half if not 2 hours. After he cooled down in the house, he decided to take a shower and as he was showering he got very dizzy and lightheaded and passed out. When he came to, he called his who called the ambulance. He does admit that the shower was very hot. On arrival of the ambulance, he was found to be in narrow complex tachycardia. According to the admission note, he was administered adenosine and the arrhythmia resolved. Unfortunately, I could not find any documentation of this in the chart. There are no telemetry strips but will be looking for them. After evaluation in the ER, a decision was made to continue monitoring the patient in hospital because his troponin was very marginally elevated. The initial reading was 0.12, then 2 hours later it come to 0.15 and then this morning it was 0.21. The patient himself denies any chest discomfort per se. He does admit that during the tachycardia he might have had very minimal discomfort. The patient does report a similar episodes of tachycardia 2 weeks ago. He was then in [place], but after about an hour it spontaneously resolve so he did not seek any immediate medical attention. At bedside the patient feels comfortable. He tells me that he slept well, has not had any problems since. PAST MEDICAL HISTORY: 1. Obesity. 2. Hypertension. 3. Dyslipidemia. 4. Type 2 diabetes. 5. Obstructive sleep apnea (GALI). 6. Fatty liver. OUTPATIENT MEDICATIONS: - aspirin 81 a day - bisoprolol/HCTZ 5/6.25 once a day - citalopram 20 mg a day - glipizide 5 mg twice a day - lisinopril 20 mg a day - metformin 1 gram twice a day - omega 3 fatty acids - rosuvastatin 20 mg three times a week ALLERGIES: No known drug allergies. SURGICAL HISTORY: Positive for removal of a cyst from the left shoulder. FAMILY HISTORY: His father of congestive heart failure and had history of stroke. His mother had breast cancer and in her 70s. 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 He has two children. Does not smoke. He does drink alcohol. He tells me that he had two beers both on Saturday and Saturday, but he denies any excessive alcohol use, especially in binges. REVIEW OF SYSTEMS: On the review of systems he denies any recent illness, fever, chills, nausea, vomiting, diarrhea. No chest pain. No shortness of breath. No abdominal pain. No fluid retention. No bleeding history. PHYSICAL EXAMINATION: Mr. Roblero is a 63-year-old man who appears approximately his age, obese, sitting in PCU bed, alert, oriented and appropriate. No distress. Blood pressure 105/56, heart rate has been mostly in 50s. He is afebrile. Saturation 95% on room air. Weight was documented 103.7 kg. His JVP is not elevated. No carotid bruits. Lungs are clear. Heart exam reveals regular rhythm. I do not appreciate any gallop, rub or murmur. Somewhat muffled heart sounds corresponding to his body habitus. Abdomen is obese but soft and nontender. Extremities are free of edema. Peripheral pulses are palpable. Neurologically, he is intact. I do not appreciate any skin abnormalities. LABORATORIES: His basic metabolic panel is normal but for glucose 118. Cardiac troponins times three as per HPI. CBC is normal. The ethanol level was tested yesterday and was less than 0.003. There are two ECGs in the chart. Both reveal sinus rhythm, poor R-wave progression and no ST-segment abnormalities. Chest x-ray is unremarkable. ASSESSMENT: Mr. Roblero is a 63-year-old man who has multiple risk factors for coronary artery disease (CAD) that include hypertension, dyslipidemia, diabetes, and obesity who presented after a syncopal event at home. It is likely that the SVT that was reportedly discovered by EMT was the trigger, further precipitated by hot water. As far as the management of SVT is concerned, because this was a second episode within 2 weeks and he already has been on beta-rosalia and his heart rate is relatively bradycardic in sinus rhythm, I believe that he would be best served by ablation. This is obviously dependent on ECG strips from ambulance. I asked the PCU mailing clerk to look for the tracings. But the fact that it had responded to adenosine is certainly supportive of this diagnosis. As far as the syncope is concerned, even though the story seems highly suggestive of syncope caused by vasodilation and in setting of SVT, I think it is prudent to obtain an echocardiogram. It was already ordered by the hospitalist service. Provided his left ventricular systolic function is preserved, I do not believe we need to do any further investigations in this setting. As far as the troponin elevation is concerned, I suspect this is caused by underlying tachycardia. Based on the history, he had at least 2 hours of sustained SVT. Because he has multiple risk factors for CAD, I tentatively plan on outpatient evaluation for ischemia with a stress test. Provided he can ambulate on telemetry without difficulty and his cardiac enzymes start trending down, I think he can be discharged home later today or tomorrow. I plan to see him in followup in the office. I also plan on referring him to electrophysiology.
[2018-08-19 12:00] VITALS: BP 115/59
[2018-08-19 14:43] LABS: MB/CK RELATIVE INDEX 1.04 (< OR =4); TROPONIN I 0.2 NG/ML (< 0.10)
[2018-08-19 16:00] VITALS: BP 115/62
[2018-08-19 19:59] VITALS: BP 136/63
--- NOTE | 2018-08-19 20:40 | ECHO ---
DATE OF PROCEDURE: 08/19/2018 REFERRING PHYSICIAN: Marilu Pabon MD INDICATION: SVT, elevated troponin. HEIGHT: 165 cm WEIGHT: 107 kg DIMENSIONS: IVS: 1.1 LV: 5.6 LVPW: 1.0 LA: 4.2 Aorta: 3.1 IVC: 1.7 Mitral E wave velocity: 49, A wave: 41 E prime septal: 8.1, A prime lateral: 14.1 FINDINGS: The study is of fair technical quality corresponding to patient's body habitus. Left ventricle is of normal size and systolic function, I estimate ejection fraction (EF) 60-65%. No segmental wall motion abnormalities are appreciated. Right ventricle also appears normal. Left atrium is moderately enlarged (left atrial volume index 36 mL2). Right atrium appears normal. All four cardiac valves were reasonably well seen and appear normal. No pericardial effusion is noted. Inferior vena cava is normal size. Aortic root appears normal. Aortic arch and abdominal aorta were not well seen. Doppler interrogation reveals no aortic stenosis or insufficiency. There is mild mitral and tricuspid insufficiency. Calculated pulmonary artery pressure is around 30 mmHg corresponding to mild pulmonary hypertension. Trace pulmonic insufficiency is seen. Mitral inflow pattern and tissue Doppler imaging of mitral annulus reveal probably normal diastolic function even though septal tissue Doppler velocity is relatively low. CONCLUSION 1. Study is of fair technical quality. 2. Normal left ventricle (LV) size with normal LV systolic function and probably normal diastolic function. 3. No hemodynamically significant valvular disease. 4. Likely normal central venous pressure and probably mild pulmonary hypertension. 5. Moderate left atrial enlargement (left atrial volume index 36 mL2). COMMENT Subacute bacterial endocarditis (SBE) prophylaxis is not recommended.
[2018-08-19] MEDS ORDERED: HumaLOG INSULIN (NovoLOG) PER UNIT SC SCH (21:00)
[2018-08-19 21:41] LABS: MB/CK RELATIVE INDEX 0.97 (< OR =4); TROPONIN I 0.18 NG/ML (< 0.10)
[2018-08-19 23:59] VITALS: BP 127/64
[2018-08-20 04:00] VITALS: BP 131/62
[2018-08-20 06:09] LABS: BASO % 0.6 % (0.0-1.0); EOS # 0.2 10^3/uL (0.0-0.50); EOS % 2.1 % (0.0-3.0); HEMOGLOBIN 13.6 g/dl (13.5-17.5); LYMPH # 1.5 10^3/uL (1.5-4.5); LYMPH % 20.4 % (24.0-44.0); MEAN CORPUSCULAR HEMOGLOBIN 32.3 pg (27.0-33.0); MEAN CORPUSCULAR HGB CONC 33.2 g/dl (32.0-36.5); MEAN CORPUSCULAR VOLUME 97.4 fl (80.0-96.0); MONO # 0.8 10^3/uL (0.0-0.8); NEUTROPHILS # 4.7 10^3/uL (1.8-7.7); NEUTROPHILS % 65.6 % (36.0-66.0); PLATELET COUNT, AUTOMATED 151 10^3/uL (150-450); RED BLOOD COUNT 4.21 10^6/uL (4.30-6.10); WHITE BLOOD COUNT 7.2 10^3/uL (4.0-10.0)
[2018-08-20 06:42] LABS: BLOOD UREA NITROGEN 17 MG/DL (7-18); CARBON DIOXIDE LEVEL 27 MEQ/L (21-32); CHLORIDE LEVEL 109 MEQ/L (98-107); CPK CREATINE PHOSPHOKINASE 250 U/L (39-308); CREATININE FOR GFR 0.96 MG/DL (0.70-1.30); GLOMERULAR FILTRATION RATE > 60.0 (>49); GLUCOSE, FASTING 151 MG/DL (70-100); MAGNESIUM LEVEL 2.2 MG/DL (1.8-2.4); MB/CK RELATIVE INDEX 1.08 (< OR =4); POTASSIUM SERUM 4.4 MEQ/L (3.5-5.1); SODIUM LEVEL 142 MEQ/L (136-145); TROPONIN I 0.19 NG/ML (< 0.10)
[2018-08-20] MEDS: HumaLOG INSULIN (NovoLOG) PER UNIT SC SCH (07:30)
[2018-08-20 08:00] VITALS: BP 125/65
[2018-08-20] MEDS ORDERED: MAG400TA PO (08:05)
[2018-08-20] MEDS: ENOXAPARIN 40 MG/0.4 ML SYRINGE (J1650) SC SCH (08:49)
[2018-08-20] MEDS: ASPIRIN 81 MG ENTERIC TAB PO SCH (08:50)
[2018-08-20] MEDS: glipiZIDE (GLUCOTROL) 5 MG TAB PO SCH (08:50)
[2018-08-20] MEDS: ESCITALOPRAM OXALATE 10 MG TAB (LEXAPRO) PO SCH (08:50)
[2018-08-20] MEDS: BISOPROLOL FUMARATE 5 MG TAB PO SCH (08:50)
[2018-08-20 08:51] VITALS: BP 125/65
[2018-08-20] MEDS: DOCUSATE SODIUM 100 MG CAP PO SCH (08:51)
[2018-08-20] MEDS: MAGNESIUM OXIDE 400 MG TAB (MAG-OX) PO SCH (08:51)
[2018-08-20] MEDS: LISINOPRIL 20 MG TAB PO SCH (08:51)
--- NOTE | 2018-08-20 08:59 | IPN ---
DATE: 08/20/2018 Mr. Roblero has done well overnight. He has not had any recurrence of supraventricular tachycardia (SVT). He did not do much ambulation yet today, but he ambulated on progressive care unit (PCU) yesterday without difficulty. He has no specific complaints. Blood pressure this morning is 125/65. Heart rate has been in the 50s. He is afebrile. Saturation 99%. Weight is 103.9 kg. He is alert, oriented, appropriate. Lungs are clear. Heart exam regular rhythm. I do not appreciate any gallop, rub or murmur. Abdomen is soft. There is no edema. Laboratory-mclaughlin, normal CBC and essentially normal basic metabolic panel but for a glucose of 151. He had multiple sets of cardiac enzymes. His CK-MB peaked at 6.0, but the relative index has always been negative. His troponin remains mildly elevated. The initial one was 0.12 and he peaked at 0.21 and has been hanging around the same value since. It is 0.19 this morning. ECG reveals no acute ST-segment abnormalities and that was the case yesterday and today. His echocardiogram reveals preserved left ventricular systolic function. ASSESSMENT/PLAN: Mr. Roblero is a 63-year-old man who presented with sustained supraventricular tachycardia that responded to adenosine administered by the EMT. 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 He had a mild troponin elevation which in my opinion is most likely related to his tachycardia that persisted for over 2 hours, but because he has multiple risk factors for CAD, I will bring him for outpatient stress testing probably next week. He is already on beta rosalia and his resting heart rate is in bradycardiac range, so I do not believe we can increase the dose. Because this is not an isolated incident, I believe that his best option would be EP study and ablation and I will set him up with electrophysiology in order to accomplish that. From my perspective, he can be discharged home today and I will arrange for cardiology followup. I spoke with Gloria Espinal NP, about this plan.
[2018-08-20] MEDS ORDERED: ROSUVASTATIN 10 MG TAB (CRESTOR) PO SCH (09:00)
--- NOTE | 2018-08-20 09:33 | ECGEPIP ---
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
--- NOTE | 2018-08-20 09:39 | ECGEPIP ---
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 Electronically Signed on 08-20-2018 9:39:27 EDT by Cedric Shin
--- NOTE | 2018-08-20 09:46 | ECGEPIP ---
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 Electronically Signed on 08-20-2018 9:46:20 EDT by Cedric Shin
--- NOTE | 2018-08-20 10:34 | DSES ---
DATE OF ADMISSION: 08/19/2018 DATE OF DISCHARGE: PRIMARY CARE PROVIDER: Lisa Pulido NP ATTENDING PHYSICIAN: Dr. Joseph Stoddard EMERGENCY VEHICLE OPERATIONS INSTRUCTOR: Dr. Melanie Lr HISTORY OF PRESENT ILLNESS: This is a 63-year-old gentleman with a past medical history of hypertension, hyperlipidemia, diabetes, obstructive sleep apnea, fatty liver, anxiety, and obesity who presented to the emergency department (ED) for complaint of palpitations, chest pain and syncopal episode at home. The patient developed chest heaviness located retrosternally and slightly to the left with a heavy pressure like sensation and associated with palpitations. The patient called EMS after he had a syncopal episode while in the shower. EMS documented supraventricular tachycardia. He was given one dose of Adenosine and the patient responded well returning to sinus rhythm. Initial troponins showed some mild elevation at 0.12 and 0.15 with a low magnesium of 1.5. The patient was subsequently admitted for observation and cardiology was consulted. HOSPITAL COURSE: The patient has remained in sinus rhythm and mildly bradycardic and the heart rate is in the 50s. Oxygen saturations remained stable. The patient's blood pressures have remained stable. The patient is status post echocardiogram with normal left ventricle (LV) size as well as systolic function. Normal CVP. Mild pulmonary hypertension noted and moderate left atrial enlargement. PHYSICAL EXAMINATION: Today, blood pressure is stable at 131/62, oxygen saturation 95% on room air, heart rate 52. Temperature 98. HEENT: Neck supple without lymphadenopathy or jugular venous distention. Cardiovascular: Heart rate and rhythm are regular. Pulmonary: Lungs are clear. Abdomen: Soft. Nontender. Positive bowel sounds throughout. Extremities: No edema. Positive pedal pulses. Neurologic: The patient is alert and oriented times three. Psych: Affect is appropriate, conversations congruent and patient maintains eye contact. ASSESSMENT: 1. Supraventricular tachycardia. The patient will be followed up with cardiology in the short term. Plan is for electrophysiology and probable cardiac ablation. The patient was advised no strenuous activities, limit alcohol intake, remain hydrated, and was given measures to attempt to moderate his SVT while at home. If he is unable to improve his symptoms, he is to come to the emergency department immediately. 2. Diabetes. The patient was encouraged to continue with routine eating, maintain his diabetic diet and limit any risk of hypo or severe hyperglycemia. 3. Hypertension. Continue his at home medications, bisoprolol 5 with hydrochlorothiazide 6.25 mg one by mouth daily. 4. Obstructive sleep apnea. The patient was encouraged to continue with compliance with the CPAP. 5. Hyperlipidemia. The patient has a high ASCVD risk and increased risk. He tolerates his Crestor 20 mg Saturday, Saturday and Fridays and he will continue that. DIET: Carbohydrate consistent, 2 gram sodium. ACTIVITY: As tolerated with no strenuous activity. MEDICATION LIST: - aspirin 81 mg one by mouth daily - bisoprolol/hydrochlorothiazide 5/6.25 mg one by mouth daily - Lexapro 20 mg one daily - glipizide 5 mg by mouth twice a day - lisinopril 20 mg by mouth daily - metformin 1000 mg by mouth twice a day - fish oil one capsule by mouth twice a day - rosuvastatin calcium 20 mg by mouth three times per week - magnesium oxide 400 mg one tablet by mouth daily The patient is discharged in stable and satisfactory condition with no further questions at time of discharge.
== END 2018-08-20 11:08 | disposition home or self-care (01) ==
LOC: M ED 19:37 → M ED INP 08-19 00:58 → M PCU 08-19 02:39
PROVIDERS: ADMIT Internal Medicine Nephrology; ATTEND Family Medicine
DX: I47.1 Supraventricular tachycardia (principal); I10 Essential (primary) hypertension; E78.49 Other hyperlipidemia; E11.9 Type 2 diabetes mellitus without complications; G47.33 Obstructive sleep apnea (adult) (pediatric); K76.0 Fatty (change of) liver, not elsewhere classified; F41.9 Anxiety disorder, unspecified; Z79.82 Long term (current) use of aspirin; Z79.84 Long term (current) use of oral hypoglycemic drugs; Z79.899 Other long term (current) drug therapy
CPT/HCPCS: 36415; 71045; 80048; 80053; 82550; 82553; 83735; 84439; 84443; 84484; 85025; 93005; 93306; 96360; 99285; G0480; J1650; J3475

== ENCOUNTER → 2018-09-05 | Outpatient (REF) | payer BC ==
[~2018-09-05] MED LIST: ASPI81TA27 PO; BISO5TAB2 PO; ESCI20TA PO; FISH500C PO; GLIP5TAB8 PO; LISI-538 PO; MAG400TA PO; METF-877 PO; ROSU20TA4 PO
[2018-09-05 16:27] LABS: ALBUMIN 3.8 GM/DL (3.2-5.2); ALT/SGPT 59 U/L (12-78); BILIRUBIN,TOTAL 0.2 MG/DL (0.2-1.0); BLOOD UREA NITROGEN 20 MG/DL (7-18); CALCIUM LEVEL 8.5 MG/DL (8.8-10.2); CARBON DIOXIDE LEVEL 30 MEQ/L (21-32); CHLORIDE LEVEL 105 MEQ/L (98-107); CREATININE FOR GFR 1.16 MG/DL (0.70-1.30); GLOMERULAR FILTRATION RATE > 60.0 (>49); GLUCOSE, FASTING 168 MG/DL (70-100); MAGNESIUM LEVEL 1.9 MG/DL (1.8-2.4); POTASSIUM SERUM 4.5 MEQ/L (3.5-5.1); SODIUM LEVEL 141 MEQ/L (136-145); TOTAL PROTEIN 6.9 GM/DL (6.4-8.2)
[2018-09-05 16:56] LABS: HEMOGLOBIN A1c 7.1 %
== END ==
LOC: M SFHCPLAZ 12:06
PROVIDERS: ATTEND Nurse Practitioner Family
DX: I10 Essential (primary) hypertension (principal); E83.42 Hypomagnesemia

== ENCOUNTER → 2018-10-04 | Outpatient (REF) | payer BC ==
[~2018-10-04] MED LIST changes: -ROSU20TA4 PO; +ROSU20TA5 PO
== END ==
LOC: M SFHCLERA 10:01
PROVIDERS: ATTEND Nurse Practitioner Family
DX: J02.9 Acute pharyngitis, unspecified (principal)

== ENCOUNTER → 2018-11-14 | Outpatient (REF) | payer BC ==
[2018-11-14 13:07] LABS: HEMOGLOBIN A1c 6.5 %
[2018-11-14 13:13] LABS: ALBUMIN 3.8 GM/DL (3.2-5.2); ALT/SGPT 64 U/L (12-78); BILIRUBIN,TOTAL 0.3 MG/DL (0.2-1.0); BLOOD UREA NITROGEN 16 MG/DL (7-18); CALCIUM LEVEL 9.1 MG/DL (8.8-10.2); CARBON DIOXIDE LEVEL 27 MEQ/L (21-32); CHLORIDE LEVEL 109 MEQ/L (98-107); CHOLESTEROL LEVEL 106 MG/DL (<200); CHOLESTEROL RISK RATIO 2.789 (<5); CREATININE FOR GFR 0.85 MG/DL (0.70-1.30); GLOMERULAR FILTRATION RATE > 60.0 (>49); GLUCOSE, FASTING 77 MG/DL (70-100); HDL CHOLESTEROL 38 MG/DL (>40); LDL CHOLESTEROL 46 MG/DL (<100); NON-HDL-C 68 MG/DL; POTASSIUM SERUM 4.3 MEQ/L (3.5-5.1); SODIUM LEVEL 145 MEQ/L (136-145); TOTAL PROTEIN 6.9 GM/DL (6.4-8.2); TRIGLYCERIDES LEVEL 110 MG/DL (<150)
== END ==
LOC: M SFHCPLAZ 10:51
PROVIDERS: ATTEND Nurse Practitioner Family
DX: E11.9 Type 2 diabetes mellitus without complications (principal); E78.5 Hyperlipidemia, unspecified

== ENCOUNTER → 2018-12-19 | Outpatient (CLI) | payer BC ==
[2018-12-19 11:44] LABS: BASO # 0.1 10^3/uL (0.0-0.2); BASO % 0.9 % (0.0-1.0); EOS # 0.2 10^3/uL (0.0-0.5); EOS % 3.4 % (0.0-3.0); HEMATOCRIT 44.5 % (42.0-52.0); HEMOGLOBIN 14.8 g/dl (13.5-17.5); LYMPH # 1.5 10^3/uL (1.5-5.0); LYMPH % 26.3 % (24.0-44.0); MEAN CORPUSCULAR HEMOGLOBIN 32.7 pg (27.0-33.0); MEAN CORPUSCULAR HGB CONC 33.3 g/dl (32.0-36.5); MEAN CORPUSCULAR VOLUME 98.5 fl (80.0-96.0); MONO # 0.6 10^3/uL (0.0-0.8); MONO % 10.3 % (0.0-5.0); NEUTROPHILS # 3.2 10^3/uL (1.5-8.5); NEUTROPHILS % 58.6 % (36.0-66.0); PLATELET COUNT, AUTOMATED 167 10^3/uL (150-450); RED BLOOD COUNT 4.52 10^6/uL (4.30-6.10); WHITE BLOOD COUNT 5.5 10^3/uL (4.0-10.0)
[2018-12-19 12:12] LABS: BLOOD UREA NITROGEN 14 MG/DL (7-18); CALCIUM LEVEL 8.9 MG/DL (8.8-10.2); CARBON DIOXIDE LEVEL 29 MEQ/L (21-32); CHLORIDE LEVEL 103 MEQ/L (98-107); CREATININE FOR GFR 0.96 MG/DL (0.70-1.30); GLOMERULAR FILTRATION RATE > 60.0 (>49); GLUCOSE, FASTING 109 MG/DL (70-100); POTASSIUM SERUM 4.3 MEQ/L (3.5-5.1); SODIUM LEVEL 139 MEQ/L (136-145)
== END ==
LOC: M LRY 09:25
PROVIDERS: ATTEND Internal Medicine Cardiovascular Disease
DX: I47.2 Ventricular tachycardia (principal)

== ENCOUNTER 2019-06-01 08:49 | Day surgery (SDC) | payer BC ==
[~2019-06-01] VITALS: Ht 165.1 cm; Wt 120.7 kg
[~2019-06-01 08:49] MED LIST changes: +LIDOCAINE 2% INJ 100 MG/5 ML SDV (FOR ANES.) As Ordered ONE; +NS 1,000 ML IV ONE; +TRUL10IN SC
[2019-06-01] MEDS ORDERED: propofoL 200 MG/20 ML VIAL As Ordered ONE ×2 (09:33→10:39)
--- NOTE | 2019-06-01 10:45 | ROOR ---
Patient Name: Jay Roblero Procedure Date: 06/01/2019 10:19 AM Date of : 1955 Age: 63 Room: [facility] Gender: Male Note Status: Finalized Procedure: Colonoscopy Indications: High risk colon cancer surveillance: Personal history of colonic polyps, Last colonoscopy: May 2010 Providers: Cedric MORALES MD Referring MD: RUBEN SOUZA MD Requesting Provider: Medicines: Monitored Anesthesia Care Complications: No immediate complications. Procedure: Pre-Anesthesia Assessment: - The heart rate, respiratory rate, oxygen saturations, blood pressure, adequacy of pulmonary ventilation, and response to care were monitored throughout the procedure. The Colonoscope was introduced through the anus and advanced to the cecum, identified by appendiceal orifice and ileocecal valve. The colonoscopy was performed without difficulty. The patient tolerated the procedure well. The quality of the bowel preparation was good. Findings: The perianal and digital rectal examinations were normal. Three sessile polyps were found in the rectum and sigmoid colon. The polyps were 4 to 5 mm in size. These polyps were removed with a cold snare. Resection and retrieval were complete. Multiple medium-mouthed diverticula were found in the sigmoid colon. Small Internal Hemorrhoids. The exam was otherwise without abnormality on direct and retroflexion views. Impression: - Three 4 to 5 mm polyps in the rectum and in the sigmoid colon, removed with a cold snare. Resected and retrieved. - Diverticulosis in the sigmoid colon. - Small Internal Hemorrhoids. - The examination was otherwise normal on direct and retroflexion views. Recommendation: - Repeat colonoscopy date to be determined after pending pathology results are reviewed for surveillance. - Repeat colonoscopy in 3 - 5 years for surveillance. - Telephone endoscopist for pathology results in 2 weeks. Cedric Morales MD Cedric MORALES MD 06/01/2019 10:44:52 AM Electronically signed by Cedric MORALES MD Number of Addenda: 0 Note Initiated On: 06/01/2019 10:19 AM Estimated Blood Loss: Estimated blood loss: none.
[2019-06-01 11:05] VITALS: BP 101/66
== END 2019-06-01 11:11 | disposition home or self-care (01) ==
LOC: M OPP 08:49
PROVIDERS: ATTEND Internal Medicine Gastroenterology
DX: Z12.11 Encounter for screening for malignant neoplasm of colon (principal); K62.1 Rectal polyp; D12.5 Benign neoplasm of sigmoid colon; K57.30 Diverticulosis of large intestine without perforation or abscess without bleeding; K64.8 Other hemorrhoids; I10 Essential (primary) hypertension; E78.5 Hyperlipidemia, unspecified; G47.8 Other sleep disorders; G47.30 Sleep apnea, unspecified; R06.83 Snoring; E11.9 Type 2 diabetes mellitus without complications; Z79.82 Long term (current) use of aspirin; Z79.899 Other long term (current) drug therapy

== ENCOUNTER → 2019-09-24 | Outpatient (CLI) | payer BC ==
[~2019-09-24] MED LIST changes: -LIDOCAINE 2% INJ 100 MG/5 ML SDV (FOR ANES.) As Ordered ONE; -NS 1,000 ML IV ONE
[2019-09-24 15:43] LABS: ALBUMIN 3.6 GM/DL (3.2-5.2); ALT/SGPT 44 U/L (12-78); BILIRUBIN,TOTAL 0.3 MG/DL (0.2-1.0); BLOOD UREA NITROGEN 18 MG/DL (7-18); CALCIUM LEVEL 8.7 MG/DL (8.8-10.2); CARBON DIOXIDE LEVEL 25 MEQ/L (21-32); CHLORIDE LEVEL 111 MEQ/L (98-107); CHOLESTEROL LEVEL 156 MG/DL (<200); CHOLESTEROL RISK RATIO 4.457 (<5); CREATININE FOR GFR 1.02 MG/DL (0.70-1.30); GLOMERULAR FILTRATION RATE > 60.0 (>49); GLUCOSE, FASTING 181 MG/DL (70-100); HDL CHOLESTEROL 35 MG/DL (>40); LDL CHOLESTEROL 72 MG/DL (<100); MAGNESIUM LEVEL 1.8 MG/DL (1.8-2.4); NON-HDL-C 121 MG/DL; POTASSIUM SERUM 4.3 MEQ/L (3.5-5.1); SODIUM LEVEL 141 MEQ/L (136-145); TOTAL PROTEIN 6.7 GM/DL (6.4-8.2); TRIGLYCERIDES LEVEL 244 MG/DL (<150)
== END ==
LOC: M PLALAB 13:11
PROVIDERS: ATTEND Internal Medicine Cardiovascular Disease
DX: I47.2 Ventricular tachycardia (principal); E78.2 Mixed hyperlipidemia

== ENCOUNTER → 2019-11-19 | Outpatient (CLI) | payer BC ==
[2019-11-19 13:40] LABS: BLOOD UREA NITROGEN 28 MG/DL (7-18); CALCIUM LEVEL 9.2 MG/DL (8.8-10.2); CARBON DIOXIDE LEVEL 28 MEQ/L (21-32); CHLORIDE LEVEL 106 MEQ/L (98-107); CREATININE FOR GFR 1.14 MG/DL (0.70-1.30); GLOMERULAR FILTRATION RATE > 60.0 (>49); GLUCOSE, FASTING 100 MG/DL (70-100); POTASSIUM SERUM 4.4 MEQ/L (3.5-5.1); SODIUM LEVEL 139 MEQ/L (136-145)
[2019-11-19 13:49] LABS: ALT/SGPT 57 U/L (12-78); BILIRUBIN,TOTAL 0.4 MG/DL (0.2-1.0); BLOOD UREA NITROGEN 28 MG/DL (7-18); CARBON DIOXIDE LEVEL 27 MEQ/L (21-32); CHLORIDE LEVEL 106 MEQ/L (98-107); CHOLESTEROL LEVEL 104 MG/DL (<200); CHOLESTEROL RISK RATIO 2.971 (<5); CREATININE FOR GFR 1.15 MG/DL (0.70-1.30); GLOMERULAR FILTRATION RATE > 60.0 (>49); GLUCOSE, FASTING 99 MG/DL (70-100); HDL CHOLESTEROL 35 MG/DL (>40); LDL CHOLESTEROL 40 MG/DL (<100); NON-HDL-C 69 MG/DL; POTASSIUM SERUM 4.4 MEQ/L (3.5-5.1); SODIUM LEVEL 140 MEQ/L (136-145); TOTAL 25(OH) VITAMIN D 49.8 NG/ML (30.0-100.0); TOTAL PROTEIN 7.1 GM/DL (6.4-8.2); TRIGLYCERIDES LEVEL 145 MG/DL (<150)
[2019-11-19 14:01] LABS: HEMOGLOBIN A1c 6.1 %
== END ==
LOC: M PLALAB 09:01
PROVIDERS: ATTEND Family Medicine
DX: E11.9 Type 2 diabetes mellitus without complications (principal); E78.5 Hyperlipidemia, unspecified; F41.9 Anxiety disorder, unspecified; E78.2 Mixed hyperlipidemia; E55.9 Vitamin D deficiency, unspecified; I50.9 Heart failure, unspecified; I48.91 Unspecified atrial fibrillation

== ENCOUNTER → 2020-02-22 | Outpatient (CLI) | payer BC ==
[2020-02-22 16:21] LABS: ALBUMIN 3.6 GM/DL (3.2-5.2); ALT/SGPT 49 U/L (12-78); BILIRUBIN,TOTAL 0.3 MG/DL (0.2-1.0); BLOOD UREA NITROGEN 38 MG/DL (7-18); CALCIUM LEVEL 8.8 MG/DL (8.8-10.2); CARBON DIOXIDE LEVEL 28 MEQ/L (21-32); CHLORIDE LEVEL 105 MEQ/L (98-107); CHOLESTEROL LEVEL 141 MG/DL (<200); CHOLESTEROL RISK RATIO 3.916 (<5); CREATININE FOR GFR 1.42 MG/DL (0.70-1.30); GLOMERULAR FILTRATION RATE 53.6 (>49); GLUCOSE, FASTING 122 MG/DL (70-100); HDL CHOLESTEROL 36 MG/DL (>40); MAGNESIUM LEVEL 1.8 MG/DL (1.8-2.4); NON-HDL-C 105 MG/DL; NT-PRO BNP 34 PG/ML (<125); POTASSIUM SERUM 4.4 MEQ/L (3.5-5.1); SODIUM LEVEL 141 MEQ/L (136-145); TOTAL PROTEIN 6.8 GM/DL (6.4-8.2); TRIGLYCERIDES LEVEL 485 MG/DL (<150)
== END ==
LOC: M PLALAB 13:48
PROVIDERS: ATTEND Internal Medicine Cardiovascular Disease
DX: I47.2 Ventricular tachycardia (principal); E78.2 Mixed hyperlipidemia

== ENCOUNTER → 2020-05-20 | Outpatient (CLI) | payer BC ==
[~2020-05-20] MED LIST changes: -ESCI20TA PO; +ESCI20TA16 PO; -LISI-538 PO; +LISI20TA33 PO; -MAG400TA PO; +MAGN400T35 PO
[2020-05-20 14:47] LABS: HEMATOCRIT 39.1 % (42.0-52.0); HEMOGLOBIN 12.4 g/dl (13.5-17.5); MEAN CORPUSCULAR HEMOGLOBIN 31.2 pg (27.0-33.0); MEAN CORPUSCULAR HGB CONC 31.7 g/dl (32.0-36.5); MEAN CORPUSCULAR VOLUME 98.2 fl (80.0-96.0); PLATELET COUNT, AUTOMATED 171 10^3/uL (150-450); RED BLOOD COUNT 3.98 10^6/uL (4.30-6.10); WHITE BLOOD COUNT 5.9 10^3/uL (4.0-10.0)
[2020-05-20 15:19] LABS: ALBUMIN 3.6 GM/DL (3.2-5.2); ALT/SGPT 42 U/L (12-78); BILIRUBIN,TOTAL 0.4 MG/DL (0.2-1.0); BLOOD UREA NITROGEN 33 MG/DL (7-18); CALCIUM LEVEL 9.3 MG/DL (8.8-10.2); CARBON DIOXIDE LEVEL 29 MEQ/L (21-32); CHLORIDE LEVEL 109 MEQ/L (98-107); CHOLESTEROL LEVEL 82 MG/DL (<200); CHOLESTEROL RISK RATIO 2.411 (<5); CREATININE FOR GFR 1.21 MG/DL (0.70-1.30); GLOMERULAR FILTRATION RATE > 60.0 (>49); GLUCOSE, FASTING 134 MG/DL (70-100); HDL CHOLESTEROL 34 MG/DL (>40); LDL CHOLESTEROL 22 MG/DL (<100); MAGNESIUM LEVEL 1.7 MG/DL (1.8-2.4); NON-HDL-C 48 MG/DL; POTASSIUM SERUM 4.7 MEQ/L (3.5-5.1); SODIUM LEVEL 141 MEQ/L (136-145); TOTAL PROTEIN 6.7 GM/DL (6.4-8.2); TRIGLYCERIDES LEVEL 129 MG/DL (<150)
== END ==
LOC: M PLALAB 11:16
PROVIDERS: ATTEND Internal Medicine Cardiovascular Disease
DX: I47.2 Ventricular tachycardia (principal); E78.2 Mixed hyperlipidemia

== ENCOUNTER → 2020-06-01 | Outpatient (CLI) | payer BC ==
[2020-06-01 14:37] LABS: BLOOD UREA NITROGEN 21 MG/DL (7-18); CALCIUM LEVEL 9.2 MG/DL (8.8-10.2); CARBON DIOXIDE LEVEL 28 MEQ/L (21-32); CHLORIDE LEVEL 104 MEQ/L (98-107); CREATININE FOR GFR 1.23 MG/DL (0.70-1.30); GLOMERULAR FILTRATION RATE > 60.0 (>49); GLUCOSE, FASTING 112 MG/DL (70-100); POTASSIUM SERUM 4.6 MEQ/L (3.5-5.1); SODIUM LEVEL 138 MEQ/L (136-145)
[2020-06-02 17:07] LABS: Lyme Disease IgG/IgM Antibodie <0.91 ISR (0.00-0.90); Lyme Disease IgM Ab Quantitati <0.80 index (0.00-0.79)
== END ==
LOC: M PLALAB 11:47
PROVIDERS: ATTEND Internal Medicine Cardiovascular Disease
DX: E78.6 Lipoprotein deficiency (principal); A69.20 Lyme disease, unspecified

== ENCOUNTER → 2020-07-18 | Outpatient (REF) | payer BC ==
[2020-07-18 12:20] LABS: ALBUMIN 3.9 GM/DL (3.2-5.2); ALT/SGPT 50 U/L (12-78); BILIRUBIN,TOTAL 0.4 MG/DL (0.2-1.0); BLOOD UREA NITROGEN 19 MG/DL (7-18); CARBON DIOXIDE LEVEL 29 MEQ/L (21-32); CHLORIDE LEVEL 107 MEQ/L (98-107); CREATININE FOR GFR 1.04 MG/DL (0.70-1.30); GLOMERULAR FILTRATION RATE > 60.0 (>49); GLUCOSE, FASTING 125 MG/DL (70-100); MAGNESIUM LEVEL 2.1 MG/DL (1.8-2.4); POTASSIUM SERUM 5.4 MEQ/L (3.5-5.1); SODIUM LEVEL 141 MEQ/L (136-145); TOTAL PROTEIN 7.1 GM/DL (6.4-8.2)
== END ==
LOC: M PLALAB 09:51
PROVIDERS: ATTEND Internal Medicine Cardiovascular Disease
DX: E78.2 Mixed hyperlipidemia (principal); I50.9 Heart failure, unspecified; I47.2 Ventricular tachycardia

== ENCOUNTER → 2020-07-22 | Outpatient (CLI) | payer BC ==
--- NOTE | 2020-07-22 12:34 | ECGEPIP ---
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
[2020-07-25 23:07] LABS: FLECAINIDE LEVEL 0.39 ug/mL (0.20-1.00)
== END ==
LOC: M LAB 09:28
PROVIDERS: ATTEND Internal Medicine Cardiovascular Disease
DX: I47.1 Supraventricular tachycardia (principal)

== ENCOUNTER → 2020-12-09 | Outpatient (CLI) | payer BC ==
[~2020-12-09] MED LIST changes: +BISO1TAB18 PO; -BISO5TAB2 PO
[2020-12-09 13:22] LABS: HEMATOCRIT 47.4 % (42.0-52.0); HEMOGLOBIN 15.5 g/dl (13.5-17.5); MEAN CORPUSCULAR HEMOGLOBIN 31.9 pg (27.0-33.0); MEAN CORPUSCULAR HGB CONC 32.7 g/dl (32.0-36.5); MEAN CORPUSCULAR VOLUME 97.5 fl (80.0-96.0); PLATELET COUNT, AUTOMATED 195 10^3/uL (150-450); RED BLOOD COUNT 4.86 10^6/uL (4.30-6.10); WHITE BLOOD COUNT 7.4 10^3/uL (4.0-10.0)
[2020-12-09 13:49] LABS: ALBUMIN 3.8 GM/DL (3.2-5.2); ALT/SGPT 71 U/L (12-78); BILIRUBIN,TOTAL 0.4 MG/DL (0.2-1.0); BLOOD UREA NITROGEN 15 MG/DL (7-18); CALCIUM LEVEL 9.1 MG/DL (8.8-10.2); CARBON DIOXIDE LEVEL 29 MEQ/L (21-32); CHLORIDE LEVEL 105 MEQ/L (98-107); CREATININE FOR GFR 1.07 MG/DL (0.70-1.30); GLOMERULAR FILTRATION RATE > 60.0 (>49); GLUCOSE, FASTING 151 MG/DL (70-100); POTASSIUM SERUM 5.2 MEQ/L (3.5-5.1); SODIUM LEVEL 139 MEQ/L (136-145); TOTAL PROTEIN 6.9 GM/DL (6.4-8.2)
[2020-12-09 13:57] LABS: MALB URINE SIEMENS 32.2 MG/L; MAU/CREAT RATIO 22.6 MCG/MG (0.0-30.0)
[2020-12-09 14:42] LABS: HEMOGLOBIN A1c 6.6 %
== END ==
LOC: M PLALAB 09:16
PROVIDERS: ATTEND Family Medicine
DX: E11.9 Type 2 diabetes mellitus without complications (principal)

== ENCOUNTER → 2021-05-29 | Outpatient (CLI) | payer BC ==
[2021-05-29 13:49] LABS: HEMOGLOBIN A1c 6.9 %
[2021-05-29 13:59] LABS: CHOLESTEROL RISK RATIO 2.138 (<5)
== END ==
LOC: M PLALAB 11:17
PROVIDERS: ATTEND Family Medicine
DX: E11.9 Type 2 diabetes mellitus without complications (principal)

== ENCOUNTER → 2021-08-08 | Outpatient (CLI) | payer BC ==
[2021-08-08 14:33] LABS: BLOOD UREA NITROGEN 24 MG/DL (7-18); CALCIUM LEVEL 8.6 MG/DL (8.8-10.2); CARBON DIOXIDE LEVEL 28 MEQ/L (21-32); CHLORIDE LEVEL 109 MEQ/L (98-107); CREATININE FOR GFR 1.11 MG/DL (0.70-1.30); GLOMERULAR FILTRATION RATE > 60.0 (>49); GLUCOSE, FASTING 146 MG/DL (70-100); POTASSIUM SERUM 4.9 MEQ/L (3.5-5.1); SODIUM LEVEL 141 MEQ/L (136-145)
[2021-08-08 14:43] LABS: MALB URINE SIEMENS 44.9 MG/L; MAU/CREAT RATIO 25.8 MCG/MG (0.0-30.0)
[2021-08-09 20:08] LABS: TESTOSTERONE FREE (DIRECT) 3.2 pg/mL (6.6-18.1)
== END ==
LOC: M PLALAB 09:54
PROVIDERS: ATTEND Family Medicine
DX: N52.9 Male erectile dysfunction, unspecified (principal)

== ENCOUNTER → 2021-12-27 | Outpatient (CLI) | payer BC, MEDICARE ==
[2021-12-27 16:14] LABS: ALBUMIN 3.7 GM/DL (3.2-5.2); BILIRUBIN,DIRECT 0.1 MG/DL (0.0-0.2); BILIRUBIN,TOTAL 0.3 MG/DL (0.2-1.0); TOTAL PROTEIN 6.9 GM/DL (6.4-8.2)
[2021-12-27 16:29] LABS: HEMOGLOBIN A1c 6.4 %
[2021-12-27 16:51] LABS: CREATININE, URINE 76.2 MG/DL; MALB URINE SIEMENS 19.6 MG/L; MAU/CREAT RATIO 25.7 MCG/MG (0.0-30.0)
== END ==
LOC: M PLALAB 13:33
PROVIDERS: ATTEND Family Medicine
DX: N40.0 Benign prostatic hyperplasia without lower urinary tract symptoms (principal); Z12.5 Encounter for screening for malignant neoplasm of prostate
CPT/HCPCS: 36415; 80076; 82043; 83036; G0103

== ENCOUNTER → 2022-04-23 | Outpatient (CLI) | payer MEDICARE ==
[2022-04-23 14:44] LABS: HEMATOCRIT 48.8 % (42.0-52.0); HEMOGLOBIN 15.5 g/dl (13.5-17.5); MEAN CORPUSCULAR HEMOGLOBIN 30.8 pg (27.0-33.0); MEAN CORPUSCULAR HGB CONC 31.8 g/dl (32.0-36.5); PLATELET COUNT, AUTOMATED 196 10^3/uL (150-450); RED BLOOD COUNT 5.03 10^6/uL (4.30-6.10); WHITE BLOOD COUNT 6.4 10^3/uL (4.0-10.0)
[2022-04-23 15:07] LABS: BLOOD UREA NITROGEN 25 MG/DL (9-23); CALCIUM LEVEL 9.2 MG/DL (8.3-10.6); CARBON DIOXIDE LEVEL 28 MMOL/L (20-31); CHLORIDE LEVEL 104 MMOL/L (98-107); CHOLESTEROL LEVEL 133 MG/DL (<200); CHOLESTEROL RISK RATIO 3.46 (<5); CREATININE FOR GFR 1.03 MG/DL (0.70-1.30); GLOMERULAR FILTRATION RATE > 60.0 (>49); GLUCOSE, FASTING 136 MG/DL (74-106); HDL CHOLESTEROL 38.4 MG/DL (>40); LDL CHOLESTEROL 61.4 MG/DL (<100); NON-HDL-C 95 MG/DL; POTASSIUM SERUM 4.9 MMOL/L (3.5-5.1); SODIUM LEVEL 139 MMOL/L (136-145); TRIGLYCERIDES LEVEL 166 MG/DL (<150)
== END ==
LOC: M PLALAB 10:52
PROVIDERS: ATTEND Physician Assistant
DX: E78.2 Mixed hyperlipidemia (principal)

== ENCOUNTER 2022-08-23 06:32 | Day surgery (SDC) | payer MEDICARE ==
[~2022-08-23] VITALS: Ht 165.1 cm; Wt 99.8 kg
[~2022-08-23 06:32] MED LIST changes: +BISO5TAB14 PO; +CHLO125TA PO; +FLEC1TAB PO; +LEXA1TAB2 PO; +LISI40TA4 PO; +METF10004 PO; +NS 1,000 ML IV ONE; +ROSU40TA4 PO; +TADA5TAB PO
[2022-08-23] MEDS ORDERED: LIDOCAINE 2% 100MG/5ML SDV (FOR ANES.) As Ordered ONE (07:39)
[2022-08-23] MEDS ORDERED: GLYCOPYRROLATE INJ 0.2 MG/ML 2 ML VIAL As Ordered ONE (07:39)
[2022-08-23] MEDS ORDERED: propofoL 200 MG/20 ML VIAL As Ordered ONE (07:39)
[2022-08-23 08:08] VITALS: BP 114/55
== END 2022-08-23 08:17 | disposition home or self-care (01) ==
LOC: M OPP 06:32
PROVIDERS: ATTEND Internal Medicine Gastroenterology
DX: Z86.010 Personal history of colon polyps (principal); D12.3 Benign neoplasm of transverse colon; K57.30 Diverticulosis of large intestine without perforation or abscess without bleeding; K64.8 Other hemorrhoids; I10 Essential (primary) hypertension; E78.5 Hyperlipidemia, unspecified; E11.9 Type 2 diabetes mellitus without complications; G47.30 Sleep apnea, unspecified; E66.9 Obesity, unspecified; F41.9 Anxiety disorder, unspecified; Z79.82 Long term (current) use of aspirin; Z79.84 Long term (current) use of oral hypoglycemic drugs; Z79.85 Long-term (current) use of injectable non-insulin antidiabetic drugs; Z79.899 Other long term (current) drug therapy; Z80.3 Family history of malignant neoplasm of breast; Z82.49 Family history of ischemic heart disease and other diseases of the circulatory system; Z83.3 Family history of diabetes mellitus; Z83.79 Family history of other diseases of the digestive system

== ENCOUNTER → 2022-08-28 | Outpatient (CLI) | payer MEDICARE ==
[~2022-08-28] MED LIST changes: -NS 1,000 ML IV ONE
[2022-08-28 15:20] LABS: HEMATOCRIT 40.7 % (42.0-52.0); HEMOGLOBIN 13.1 g/dl (13.5-17.5); MEAN CORPUSCULAR HEMOGLOBIN 31.9 pg (27.0-33.0); MEAN CORPUSCULAR HGB CONC 32.2 g/dl (32.0-36.5); PLATELET COUNT, AUTOMATED 170 10^3/uL (150-450); RED BLOOD COUNT 4.11 10^6/uL (4.30-6.10); WHITE BLOOD COUNT 6.1 10^3/uL (4.0-10.0)
[2022-08-28 15:44] LABS: MAU/CREAT RATIO 5.7 MCG/MG (0.0-30.0)
[2022-08-28 15:46] LABS: ALBUMIN 3.8 G/DL (3.2-5.2); ALKALINE PHOSPHATASE 74 U/L (46-116); ALT/SGPT 42 U/L (7.0-40); AST/SGOT 23 U/L (<34); BILIRUBIN,TOTAL 0.4 MG/DL (0.3-1.2); BLOOD UREA NITROGEN 17 MG/DL (9-23); CALCIUM LEVEL 8.4 MG/DL (8.3-10.6); CARBON DIOXIDE LEVEL 28 MMOL/L (20-31); CHLORIDE LEVEL 106 MMOL/L (98-107); CHOLESTEROL LEVEL 82 MG/DL (<200); CHOLESTEROL RISK RATIO 2.18 (<5); CREATININE FOR GFR 1.03 MG/DL (0.70-1.30); GLOMERULAR FILTRATION RATE > 60.0 (>49); GLUCOSE, FASTING 142 MG/DL (74-106); HDL CHOLESTEROL 37.6 MG/DL (>40); LDL CHOLESTEROL 19.2 MG/DL (<100); NON-HDL-C 44.4 MG/DL; SODIUM LEVEL 140 MMOL/L (136-145); TOTAL PROTEIN 6.3 G/DL (5.7-8.2); TRIGLYCERIDES LEVEL 126 MG/DL (<150)
[2022-08-28 15:48] LABS: TOTAL 25(OH) VITAMIN D 22.2 NG/ML (20.0-100.0)
[2022-08-28 16:12] LABS: HEMOGLOBIN A1c 6.6 % (4.0-6.0)
== END ==
LOC: M PLALAB 12:11
PROVIDERS: ATTEND Family Medicine
DX: E11.9 Type 2 diabetes mellitus without complications (principal); G47.33 Obstructive sleep apnea (adult) (pediatric); E78.2 Mixed hyperlipidemia; I10 Essential (primary) hypertension; K76.0 Fatty (change of) liver, not elsewhere classified; E55.9 Vitamin D deficiency, unspecified; Z79.899 Other long term (current) drug therapy

== ENCOUNTER → 2022-09-26 | Outpatient (CLI) | payer MEDICARE ==
[~2022-09-26] MED LIST changes: -ROSU20TA5 PO; +ROSU20TA61 PO
[2022-09-26 15:26] LABS: BASO # 0.1 10^3/uL (0.0-0.2); BASO % 0.8 % (0.0-1.0); EOS # 0.2 10^3/uL (0.0-0.5); EOS % 2.6 % (0.0-3.0); HEMATOCRIT 41.6 % (42.0-52.0); HEMOGLOBIN 13.3 g/dl (13.5-17.5); LYMPH # 1.8 10^3/uL (1.5-5.0); LYMPH % 23.3 % (24.0-44.0); MONO # 0.7 10^3/uL (0.0-0.8); MONO % 8.6 % (2.0-8.0); NEUTROPHILS % 64.2 % (36.0-66.0); PLATELET COUNT, AUTOMATED 190 10^3/uL (150-450); RED BLOOD COUNT 4.29 10^6/uL (4.30-6.10); WHITE BLOOD COUNT 7.8 10^3/uL (4.0-10.0)
[2022-09-26 16:16] LABS: ALBUMIN 4.1 G/DL (3.2-5.2); ALKALINE PHOSPHATASE 75 U/L (46-116); ALT/SGPT 37 U/L (7.0-40); AST/SGOT 31 U/L (<34); BILIRUBIN,TOTAL 0.4 MG/DL (0.3-1.2); BLOOD UREA NITROGEN 26 MG/DL (9-23); CALCIUM LEVEL 9.1 MG/DL (8.3-10.6); CARBON DIOXIDE LEVEL 23 MMOL/L (20-31); CHLORIDE LEVEL 106 MMOL/L (98-107); CREATININE FOR GFR 1.02 MG/DL (0.70-1.30); GLOMERULAR FILTRATION RATE > 60.0 (>49); GLUCOSE, FASTING 84 MG/DL (74-106); POTASSIUM SERUM 4.3 MMOL/L (3.5-5.1); SODIUM LEVEL 140 MMOL/L (136-145); TOTAL PROTEIN 6.4 G/DL (5.7-8.2)
== END ==
LOC: M PLALAB 13:15
PROVIDERS: ATTEND Internal Medicine Endocrinology, Diabetes & Metabolism
DX: Z01.818 Encounter for other preprocedural examination (principal)

== ENCOUNTER → 2023-06-04 | Outpatient (CLI) | payer MEDICARE ==
[~2023-06-04] MED LIST changes: +GLIP5TAB17 PO; -GLIP5TAB8 PO
[2023-06-04 11:51] LABS: HEMOGLOBIN A1c 8.3 % (4.0-6.0)
== END ==
LOC: M PLALAB 08:20
PROVIDERS: ATTEND Family Medicine
DX: E11.9 Type 2 diabetes mellitus without complications (principal)

== ENCOUNTER → 2023-07-09 | Outpatient (CLI) | payer MEDICARE | LOC: M WHC 10:13 | PROVIDERS: ATTEND Family Medicine | DX: I25.10 Atherosclerotic heart disease of native coronary artery without angina pectoris (principal); I65.23 Occlusion and stenosis of bilateral carotid arteries ==

== ENCOUNTER → 2023-08-28 | Outpatient (CLI) | payer MEDICARE ==
[~2023-08-28] MED LIST changes: -ROSU40TA4 PO; +ROSU40TA63 PO
[2023-08-28 10:32] LABS: HEMATOCRIT 41.8 % (42.0-52.0); HEMOGLOBIN 13.4 g/dl (13.5-17.5); MEAN CORPUSCULAR HEMOGLOBIN 31.4 pg (27.0-33.0); MEAN CORPUSCULAR HGB CONC 32.1 g/dl (32.0-36.5); MEAN CORPUSCULAR VOLUME 97.9 fl (80.0-96.0); PLATELET COUNT, AUTOMATED 177 10^3/uL (150-450); RED BLOOD COUNT 4.27 10^6/uL (4.30-6.10); WHITE BLOOD COUNT 6.5 10^3/uL (4.0-10.0)
[2023-08-28 10:43] LABS: THYROID STIMULATING HORMONE 1.563 uIU/ML (0.55-4.78); TOTAL 25(OH) VITAMIN D 28.3 NG/ML (20.0-100.0)
[2023-08-28 10:44] LABS: ALBUMIN 3.5 G/DL (3.2-5.2); ALKALINE PHOSPHATASE 82 U/L (46-116); ALT/SGPT 44 U/L (7.0-40); AST/SGOT 24 U/L (<34); BILIRUBIN,TOTAL 0.4 MG/DL (0.3-1.2); BLOOD UREA NITROGEN 23 MG/DL (9-23); CALCIUM LEVEL 8.6 MG/DL (8.3-10.6); CARBON DIOXIDE LEVEL 25 MMOL/L (20-31); CHLORIDE LEVEL 107 MMOL/L (98-107); CHOLESTEROL LEVEL 82 MG/DL (<200); CHOLESTEROL RISK RATIO 2.67 (<5); CREATININE FOR GFR 1.05 MG/DL (0.70-1.30); GLOMERULAR FILTRATION RATE > 60.0 (>49); GLUCOSE, FASTING 163 MG/DL (74-106); HDL CHOLESTEROL 30.7 MG/DL (>40); LDL CHOLESTEROL 13.9 MG/DL (<100); NON-HDL-C 51.3 MG/DL; POTASSIUM SERUM 4.5 MMOL/L (3.5-5.1); SODIUM LEVEL 140 MMOL/L (136-145); TOTAL PROTEIN 6.3 G/DL (5.7-8.2); TRIGLYCERIDES LEVEL 187 MG/DL (<150)
== END ==
LOC: M PLALAB 08:12
PROVIDERS: ATTEND Family Medicine
DX: E11.9 Type 2 diabetes mellitus without complications (principal)

== ENCOUNTER → 2024-03-31 | Outpatient (CLI) | payer MEDICARE ==
[~2024-03-31] MED LIST changes: -ROSU20TA61 PO; +ROSU20TA86 PO; -ROSU40TA63 PO; +ROSU40TA81 PO; -TADA5TAB PO; +TADA5TAB94 PO
[2024-03-31 13:33] LABS: BASO # 0.1 10^3/uL (0.0-0.2); BASO % 0.9 % (0.0-1.0); EOS # 0.2 10^3/uL (0.0-0.5); EOS % 2.7 % (0.0-3.0); HEMATOCRIT 42.8 % (42.0-52.0); HEMOGLOBIN 13.8 g/dl (13.5-17.5); LYMPH # 1.8 10^3/uL (1.5-5.0); LYMPH % 23.2 % (24.0-44.0); MEAN CORPUSCULAR HEMOGLOBIN 31.4 pg (27.0-33.0); MEAN CORPUSCULAR HGB CONC 32.2 g/dl (32.0-36.5); MEAN CORPUSCULAR VOLUME 97.5 fl (80.0-96.0); MONO # 0.7 10^3/uL (0.0-0.8); MONO % 8.4 % (2.0-8.0); NEUTROPHILS % 64.5 % (36.0-66.0); PLATELET COUNT, AUTOMATED 186 10^3/uL (150-450); RED BLOOD COUNT 4.39 10^6/uL (4.30-6.10); WHITE BLOOD COUNT 7.7 10^3/uL (4.0-10.0)
[2024-03-31 14:03] LABS: ALBUMIN 3.7 G/DL (3.2-5.2); ALKALINE PHOSPHATASE 78 U/L (40-129); ALT/SGPT 35 U/L (7.0-40); AST/SGOT 21 U/L (<34); BILIRUBIN,TOTAL 0.5 MG/DL (0.3-1.2); BLOOD UREA NITROGEN 17 MG/DL (9-23); CALCIUM LEVEL 8.8 MG/DL (8.3-10.6); CARBON DIOXIDE LEVEL 26 MMOL/L (20-31); CHLORIDE LEVEL 108 MMOL/L (98-107); CHOLESTEROL LEVEL 91 MG/DL (<200); CHOLESTEROL RISK RATIO 2.35 (<5); CREATININE FOR GFR 0.98 MG/DL (0.70-1.30); GLOMERULAR FILTRATION RATE > 60.0 (>49); GLUCOSE, FASTING 104 MG/DL (74-106); HDL CHOLESTEROL 38.7 MG/DL (>40); LDL CHOLESTEROL 31.9 MG/DL (<100); NON-HDL-C 52.3 MG/DL; SODIUM LEVEL 142 MMOL/L (136-145); TOTAL PROTEIN 6.4 G/DL (5.7-8.2); TRIGLYCERIDES LEVEL 102 MG/DL (<150)
[2024-04-01 07:38] LABS: LDL DIRECT 34 mg/dL (<100)
== END ==
LOC: M PLALAB 11:52
PROVIDERS: ATTEND Internal Medicine Cardiovascular Disease
DX: E11.9 Type 2 diabetes mellitus without complications (principal)

== ENCOUNTER → 2024-04-23 | Outpatient (CLI) | payer MEDICARE ==
[2024-04-23 15:15] LABS: ALBUMIN 3.7 G/DL (3.2-5.2); ALKALINE PHOSPHATASE 115 U/L (40-129); ALT/SGPT 32 U/L (7.0-40); AST/SGOT 18 U/L (<34); BILIRUBIN,TOTAL 0.4 MG/DL (0.3-1.2); BLOOD UREA NITROGEN 21 MG/DL (9-23); CALCIUM LEVEL 8.9 MG/DL (8.3-10.6); CARBON DIOXIDE LEVEL 28 MMOL/L (20-31); CHLORIDE LEVEL 105 MMOL/L (98-107); CREATININE FOR GFR 1.07 MG/DL (0.70-1.30); GLOMERULAR FILTRATION RATE > 60.0 (>49); GLUCOSE, FASTING 92 MG/DL (74-106); SODIUM LEVEL 144 MMOL/L (136-145); TOTAL PROTEIN 6.7 G/DL (5.7-8.2)
[2024-04-23 15:17] LABS: HEMOGLOBIN A1c 5.6 % (4.0-6.0)
== END ==
LOC: M PLALAB 10:12
PROVIDERS: ATTEND Family Medicine
DX: E78.2 Mixed hyperlipidemia (principal); E55.9 Vitamin D deficiency, unspecified; E11.59 Type 2 diabetes mellitus with other circulatory complications

== ENCOUNTER → 2024-08-04 | Outpatient (CLI) | payer MEDICARE ==
[~2024-08-04] MED LIST changes: +TADA5TAB2 PO; -TADA5TAB94 PO
[2024-08-04 16:14] LABS: CALCIUM LEVEL 8.6 MG/DL (8.3-10.6); CREATININE FOR GFR 1.05 MG/DL (0.70-1.30); GLOMERULAR FILTRATION RATE 77.3 (>49); MAGNESIUM LEVEL 1.7 MG/DL (1.8-2.4); POTASSIUM SERUM 4.8 MMOL/L (3.5-5.1)
== END ==
LOC: M PLALAB 13:51
PROVIDERS: ATTEND Internal Medicine Cardiovascular Disease
DX: I48.0 Paroxysmal atrial fibrillation (principal); R06.02 Shortness of breath

== ENCOUNTER → 2024-12-29 | Outpatient (CLI) | payer MEDICARE ==
[~2024-12-29] MED LIST changes: +LISI40TA10 PO; -LISI40TA4 PO
[2024-12-29 13:37] LABS: PLATELET COUNT, AUTOMATED 163 10^3/uL (150-450)
[2024-12-29 15:56] LABS: ALT/SGPT 32.0 U/L (7.0-40); AST/SGOT 24.0 U/L (<34); CALCIUM LEVEL 8.6 MG/DL (8.3-10.6); CARBON DIOXIDE LEVEL 25.0 MMOL/L (20-31); CHLORIDE LEVEL 105.0 MMOL/L (98-107); CHOLESTEROL LEVEL 88.0 MG/DL (<200); CHOLESTEROL RISK RATIO 2.04 (<5); CREATININE FOR GFR 0.95 MG/DL (0.70-1.30); GLOMERULAR FILTRATION RATE 87.2 (>49); LDL CHOLESTEROL 27.1 MG/DL (<100); NON-HDL-C 44.9 MG/DL; POTASSIUM SERUM 4.7 MMOL/L (3.5-5.1); SODIUM LEVEL 140.0 MMOL/L (136-145); TOTAL 25(OH) VITAMIN D 31.5 NG/ML (20.0-100.0); TRIGLYCERIDES LEVEL 89.0 MG/DL (<150)
[2024-12-29 16:55] LABS: ESTIMATED AVERAGE GLUCOSE 140.0 MG/DL (60-110)
== END ==
LOC: M PLALAB 11:31
PROVIDERS: ATTEND Family Medicine
DX: I10 Essential (primary) hypertension (principal); K76.0 Fatty (change of) liver, not elsewhere classified; E78.2 Mixed hyperlipidemia; N40.1 Benign prostatic hyperplasia with lower urinary tract symptoms; E55.9 Vitamin D deficiency, unspecified; G47.33 Obstructive sleep apnea (adult) (pediatric); E66.811 Obesity, class 1; E11.59 Type 2 diabetes mellitus with other circulatory complications